=== PATIENT | female | born 1950 | race Caucasian/White ===

== ENCOUNTER 2017-03-30 11:26 | Emergency (ER) | payer MEDICARE, OTHER ==
[~2017-03-30] VITALS: Wt 88.5 kg
--- NOTE | 2017-03-30 14:34 | ERD ---
ER Documentation Chief Complaint Date/Time DATE: 03/30/17 TIME: 14:31 Chief Complaint RIGHT EYE PAIN HPI 66-year-old female previously healthy, presents to the emergency department complaining of a progressive discomfort on her right eye, for the last 5 days, described as a itchiness and irritation, associated with a mild yellowish discharge in the morning. Denies fevers, chills, no blurred vision, no visual loss. The patient does not wear contact lenses or glasses. No foreign body sensation ROS No blurred vision, no eye pain, no eye pressure, no double vision All systems reviewed and are negative except as per history of present illness. Medications Home Meds Active Scripts Ketorolac Tromethamine Oph (Ketorolac Tromethamine Oph) 0.4%-5 Ml Opht Drops, 1 DROP RIGHT EYE QID for 5 Days, EA Prov:CARLITOS CARRILLO MD 03/30/17 Polymyxin B Sulfate-TMP* (Polymyxin B-TMP Eye Drops*) 10 Ml Drops, 1 DROP RIGHT EYE Q4H WHILE AWAKE for 7 Days, EA Prov:CARLITOS CARRILLO MD 03/30/17 PMhx/Soc Denies history of diabetes, hypertension, coronary artery disease, no history of visual problems Physical Exam Vitals Vital Signs Date Time Temp Pulse Resp B/P Pulse Ox O2 Delivery O2 Flow Rate FiO2 03/30/17 11:29 98.1 87 18 143/81 99 Physical Exam Patient is in no acute distress, vital signs stable. Alert and fully oriented. HEENT: PERRLA, EOMI, OD: conjunctival erythema and edema, mild yellowish discharge noticed. normal oropharynx. NECK: Supple, No lymphadenopathy. Full ROM without pain or tenderness. HEART: RRR, no rubs, murmurs, clicks or gallops. LUNGS: Clear to auscultation, no wheezing Procedures/MDM Right eye pain: 66-year-old female without history of eye trauma or previous eye problems, presents with a symptoms and physical examination consistent with each acute conjunctivitis, differential diagnoses include viral, bacterial, chemical, allergic etiology. Will treat empirically with antibiotics and follow -up with her primary doctor in 2-4 days Departure Diagnosis: Primary Impression: Acute conjunctivitis of right eye Condition: Stable CARLITOS CARRILLO MD Mar 30, 2017 14:34
[2017-03-30] MEDS ORDERED: KETO5DRO79 RIGHT EYE (14:38)
[2017-03-30] MEDS ORDERED: POLY10DR19 RIGHT EYE (14:38)
== END 2017-03-30 16:09 | disposition home or self-care (01) ==
LOC: FTE 11:26
DX: H10.31 Unspecified acute conjunctivitis, right eye (principal)
CPT/HCPCS: 99284

== ENCOUNTER → 2018-08-06 | Outpatient (CLI) | payer MEDICARE, OTHER ==
[~2018-08-06] MED LIST: KETO5DRO79 RIGHT EYE; POLY10DR19 RIGHT EYE
== END | disposition home or self-care (01) ==
LOC: RAD 13:04
PROVIDERS: ATTEND Internal Medicine
DX: M25.561 Pain in right knee (principal)
CPT/HCPCS: 73560